=== PATIENT | male | born 1940 | race Caucasian/White ===

== ENCOUNTER 2016-06-15 11:27 | Emergency (ER) | payer MEDICARE, OTHER ==
[~2016-06-15] VITALS: Ht 177.8 cm; Wt 100.7 kg
[~2016-06-15 11:27] MED LIST: ACETAMINOPHEN-H1 TA2 PO; ACETAMINOPHEN500 M3 PO; AMIODARONE HYD200 MG PO; ANIMAL CHEWS1 EACH PO; ASPIR 8181 MG PO; ASPIRIN ADULT L81 M3 PO; ASPIRIN EC325 MG PO; ATENOLOL25 M1 PO; ATORVASTATIN CA80 MG PO; BACTRIM DS 8001 TAB PO; BENADRYL G12.5 MG/5 PO; BISOPROLOL 5MG T5 MG PO; BUMETANIDE2 MG PO; CARVEDILOL6.25 M1 PO; CARVEDILOL6.25 MG PO; COLACE100 MG PO; DICLOXACILLIN250 M1 PO; ENOXAPARIN SC; FISH OIL 1,0001 EAC2 PO; FISH OIL1000 MG PO; FSBS FS; FUROSEMIDE40 MG/4 ML IV; GABAPENTIN 400400 M1 PO; GLYCOLAX17 GM/DOSE PO; HUMALOG100 U/ML SC; HYDROCODONE-APA1 TA2 PO; IMODIUM2 MG PO; KEFLEX500 M1 PO; KLOR-CON M2020 MEQ PO; LASIX 40MG. TAB40 MG PO; LEVAQUIN500 MG PO; LISINOPRIL 5MG T5 MG PO; LISINOPRIL2.5 M1 PO; LISINOPRIL2.5 MG PO; METFORMIN HCL1000 MG PO; METFORMIN500 MG PO; METOPROLOL 25 M25 MG PO; METOPROLOL25 MG PO; NORCO 325 MG-51 TAB PO; NYSTATIN C30 GM/TUB1 TP; PANTOPRAZOLE SO40 M1 PO; POTASSIUM CHLO10 ME1 PO; PRAVACHOL 40MG40 MG PO; PROTONIX40 MG PO; SENNA LAXATIVE8.6 MG PO; SERTRALINE25 MG PO; TYLENOL W/CODEI1 TA2 PO; XARELTO20 MG PO
[2016-06-15] MEDS ORDERED: LEVAQUIN 750 M750 MG PO (12:44)
[2016-06-15] MEDS ORDERED: TAMIFLU 75MG CA75 MG PO (12:44)
--- NOTE | 2016-06-15 12:44 | Urgent Treatment Center Report ---
History of Present Issue Date/Time Seen by Provider 06/15/16 1200 Visit Reason Pt arrived:Walked Presenting Problem:ACHY ALL OVER, RUNNY NOSE, PRODUCTIE COUGH WITH YELLOW SPUTUM X 2DAYS Location if Accident: Onset of symptoms date/time:06/13/1602/19/700 or onset unknown for: Have you (or family members/close friends) recently traveled outside the [place]? N If Yes, where/when: Have you had exposure to infectious disease within the past month? TB? Other? Specify: Patient states that he feels really bad, states that he is achy all over, runny nose fever on and off and productive cough with thick yellow sputum for 2-3 days. Denies and Shortness of breath. States that he has not taken any medication for it but it just keeps getting worse ALLERGIES Coded Allergies: No Known Allergies (03/26/15) Home Medications Active Scripts LISINOPRIL (Lisinopril) 1.25 MG PO DAILY #30 TAB Prov: 06/14/15 Bumetanide 1 MG PO DAILY #30 TAB Prov: 06/14/15 HYDROCODONE/ACETAMINOPHEN (Hydrocodon-Acetaminophen 5-325) 1 TAB PO Q6HP PRN PAIN #100 TAB Prov: 06/14/15 METFORMIN HCL (Metformin 1000MG) 500 MG PO BID #60 TAB Prov: 06/14/15 LOPERAMIDE HCL (Loperamide) 2 MG PO Q4HP PRN DIARRHEA #30 CAPSULE Ref 1 Prov: 06/14/15 Reported Medications Rivaroxaban (Xarelto) 20 MG PO QHS Aspirin (Aspirin EC) 81 MG PO DAILY AMIODARONE HCL (Amiodarone Hydrochloride) 200 MG PO DAILY #30 TAB Sertraline Hcl (Sertraline HCl) 25 MG PO QHS #30 TAB Pantoprazole Sodium 40 MG PO DAILY #30 TAB OMEGA-3 FATTY ACIDS/FISH OIL (Fish Oil 1,000 MG Capsule) 1,000 MG PO DAILY Senna Pod (Senna Laxative) 1 TAB PO QHS Potassium Chloride 10 MEQ PO DAILY #30 Acetaminophen (Acetaminophen Extra Strength) 500 MG PO Q6HP PRN PAIN Metoprolol Tartrate (Metoprolol 25MG) 6.25 MG PO BID Polyethylene Glycol 3350 (Glycolax) 17 GM PO DAILY #527 Multivitamin (Animal Chews) 1 EACH PO DAILY Atorvastatin Calcium 80 MG PO QHS #90 History Medical History General CAD? No Angina: No [place]: Yes Hypertension? Yes Hyperlipidemia? Yes CHF? Yes DVT? No PE? No COPD? No Asthma? Yes Anemia? No GERD? No Gastric ulcers? No GI Bleed? No Hernia? No Thyroid Problems? No Hypothyroidism? No CVA? No Seizures? No Diabetes? Yes Insulin Dependent: No Insulin Pump: No Home FSBS? No Renal Insuffiency? No UTI? No Stones? No BPH? No GB Disease: No Nephritic Syndrome? No Asplenia? No Hepatitis? No Sickle Cell Disease? No Arthritis? Yes Migraines? No Cataracts? No Glaucoma? No MRSA? No HIV? No TB? No Anxiety? No Depression? No Cancer? No Immunization HX DT/Tetanus 1-4 Years Ago Flu 2014-16FSN Pneumonia Received In Past Surgical Hx Previous Surgery?Y R HIP REPLACEMENT TRIPLE BYPASS Family History Family HX Diabetes Yes CAD Yes Hypertension Yes Hyperlipidemia Yes Cancer No TB No Social History Smoking Hx Smoker: Never Smoker Tobacco: No Alcohol Alcohol: No Review of Systems All Other Systems Reviewed and Negative Constitutional chills, fever ENT nose discharge, nose congestion, throat pain. Respiratory cough Physical Exam Vital Signs Vital Signs Date Time Temp Pulse Resp B/P Pulse O2 O2 Flow FiO2 Ox Delivery Rate 06/15 1145 98.1 62 20 100/54 98 General Appearance Patient appears ill, pale in color Ear, Nose, Throat sinus pain/drainage, nasal congestion, tonsillar swelling, throat red irritated Respiratory Status Yes: trachea midline, chest symmetrical, non tender chest. No: respiratory distress. Lung Sounds left: rhonchi. right: rhonchi. 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 States that he has slept sitting up for a couple of nights because it helps him feel better Medical Decision Making LABS/Meds/Orders Pt receiving controlled substance in ED? No Results/Orders Laboratory Tests 06/15/16 1153: Influenza Type A Ag DETECTED H, Influenza Type B Ag NOT DETECTED Orders Procedure Date/time Status CHEST(2 VIEWS-NOT PORTABLE) 06/15 1153 Active [facility] FLU A,B 06/15 1153 Complete XRAY/CT/US XRAY/CT/US XR interpretation by reviewed by me Xray Results possible LLL infiltrate Departure Departure Time of Disposition 1240 Disposition DC Home or Self Care(routine) Clinical Impression Primary Impression: Influenza A Secondary Impressions: Pneumonia Qualifiers: Pneumonia type: due to unspecified organism Laterality: left Lung location: lower lobe of lung Qualified Code: J18.9 - Pneumonia, unspecified organism Condition STABLE Referrals Ras OSULLIVAN,Biju Diamond (Family) Patient Instructions DI for Pneumonia -- Adult, Influenza Additional Instructions Drink plenty of fluids Over the counter Motrin or Tylenol as needed for fever or pain Follow up with family doctor 2 weeks for follow up on pneumonia and repeat xray Return if needed Discharge Counseling Counseled pt/family regarding diagnosis, test results, medications/RX, home care, follow up needs Prescriptions Current Visit Scripts Oseltamivir Phosphate (Tamiflu 75MG Capsule) 75 MG PO BID #10 CAP Levofloxacin (Levaquin 750mg) 750 MG PO DAILY #5 TAB at 1242
[2016-06-15 12:47] VITALS: BP 100/54
--- NOTE | 2016-06-15 16:57 | RADIOLOGY REPORT PS360 ---
CHEST(2 VIEWS-NOT PORTABLE) COMPARISON: PA and lateral chest 06/10/2015 HISTORY: Productive cough TECHNIQUE: PA and lateral chest FINDINGS: This is a fairly good inspiration. There is minimal atelectasis or postinflammatory scarring at the left base. There is generalized cardiomegaly with left ventricular prominence however the is no evidence of failure. There are calcified hilar nodes bilaterally. There are sternal wire sutures noted and again noted is a linear metallic object projecting over the root of the aorta and/or aortic valve and this was noted previously. 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 There is prominent degenerative change in both AC joints. IMPRESSION: Generalized Aurelio megaly minimal scarring and/or atelectasis at the left base, doubt pneumonia
== END 2016-06-15 12:47 | disposition home or self-care (01) ==
LOC: UTC 11:27
DX: J10.1 Influenza due to other identified influenza virus with other respiratory manifestations (principal); J18.9 Pneumonia, unspecified organism